=== PATIENT | female | born 1950 | race Caucasian/White ===

== ENCOUNTER 2020-08-01 16:28 | Emergency (ER) | payer MEDICARE, MEDICAID ==
[~2020-08-01] VITALS: Ht 165.1 cm; Wt 72.6 kg
--- NOTE | 2020-08-01 17:30 | NUR ---
JEREMY FROM [facility] TO ER BED 12. AAOX3. NOT IN RESP DISTRESS, BREATHING EVEN AND UNLABORED. AMBULATORY. BROUGHT IN FOR EVALUATION FOR COVID 19 D/T PT REPORTED COUGHING AND NOTED WITH FEVER OF 100.1 ORALLY. PT IS SATTING @ 97% ON RA. MD WAS AT THE BEDSIDE FRO EVAL. AWAITING ORDERS
[2020-08-01] MEDS ORDERED: OMEP20CA15 PO (17:36)
[2020-08-01] MEDS ORDERED: BISA5TAB10 PO (17:36)
[2020-08-01] MEDS ORDERED: RISP0.2515 PO (17:36)
[2020-08-01] MEDS ORDERED: DOCU-141 PO (17:36)
[2020-08-01] MEDS ORDERED: CLON1TAB12 PO (17:36)
[2020-08-01 17:59] LABS: BASOPHILS % (AUTO) 0.9 % (0.0-2.0); EOSINOPHILS % (AUTO) 0.2 % (0.0-6.0); HEMATOCRIT 38 % (33-45); LYMPHOCYTES # (AUTO) 0.8 /CMM (0.8-4.8); LYMPHOCYTES % (AUTO) 17.8 % (20.0-44.0); MEAN CORPUSCULAR HGB CONC 34 g/dl (31.0-36.0); MEAN CORPUSCULAR VOLUME 100 fL (82-100); MONOCYTES # (AUTO) 0.4 /CMM (0.1-1.30); MONOCYTES % (AUTO) 8.5 % (2.0-12.0); NEUTROPHILS # (AUTO) 3.3 /CMM (1.8-8.9); NEUTROPHILS % (AUTO) 72.6 % (43.0-81.0); PLATELET COUNT (AUTO) 171 /CMM (150-450); RED BLOOD CELL COUNT(AUTO) 3.85 MIL/uL (4.0-5.2); WHITE BLOOD COUNT (AUTO) 4.6 K/uL (4.3-11.0)
[2020-08-01 18:12] LABS: ALBUMIN 3.8 g/dL (3.4-5.0); BILIRUBIN,TOTAL 0.3 mg/dL (0.2-1.0); CALCIUM, SERUM 9.5 mg/dL (8.5-10.1); POTASSIUM 4.1 mmol/L (3.5-5.1); TOTAL PROTEIN, SERUM 7.4 g/dL (6.4-8.2)
--- NOTE | 2020-08-01 19:30 | NUR ---
JUDYID SWABBED, SENT TO LAB.
[2020-08-02] MEDS ORDERED: ACETAMINOPHEN 325 MG TABLET ONE (00:15)
[2020-08-02] MEDS ORDERED: ACETAMINOPHEN 650 MG/20.3 ML UDC PO ONE (00:30)
--- NOTE | 2020-08-02 09:30 | NUR ---
WEI FROM CASE MANAGEMENT CALLED TO F/U TX TO [facility] OR ANY FACILITY THAT CAN ACCEPT ASYMPTOMATIC COVID PATIENT
--- NOTE | 2020-08-02 09:33 | NUR ---
Case management: with recommendation for SNF due to COVID. Inquiry sent to [facility] P# [phone] F# [phone] and Efax# [phone] C/O [place]. Pending acceptance.
--- NOTE | 2020-08-02 10:49 | NUR ---
Case Management: Gunjan,admission from [facility] called, [facility] is in full capacity. She is unable to take the patient at this time. Inquiry sent to [facility], [facility], [facility], (C/O Merari,admission ) and [facility] (C/O Lilliam,admission ).
--- NOTE | 2020-08-02 13:50 | NUR ---
CALL FROM [facility] WITH TX INFO: GOING TO [facility] [place] [address], REPORT TO [phone]
--- NOTE | 2020-08-02 13:52 | NUR ---
ROOM 231-A, ACCEPTED BY [facility]
--- NOTE | 2020-08-02 13:54 | NUR ---
CALLED [facility] ETA IS 45-60 MINS PER DEJAH
--- NOTE | 2020-08-02 13:59 | NUR ---
REPORT GIVEN TO AUGUSTO BOBO AT [facility]
--- NOTE | 2020-08-02 14:40 | NUR ---
Patient discharged to home in stable condition. Written and verbal after care instructions given. Patient verbalizes understanding of instruction.
[2020-08-02 14:42] VITALS: BP 130/79
== END 2020-08-02 14:43 ==
LOC: ER 16:28
DX: U07.1 COVID-19 (principal); R50.9 Fever, unspecified; F41.9 Anxiety disorder, unspecified; K21.9 Gastro-esophageal reflux disease without esophagitis; F20.9 Schizophrenia, unspecified; Z79.899 Other long term (current) drug therapy
CPT/HCPCS: 36415; 71045-TC; 80053-TC; 83605-TC; 85025-TC; 87081-TC; C9803; U0003